=== PATIENT | male | born 2000 | race Caucasian/White ===

== ENCOUNTER 2023-11-14 18:25 | Emergency (ER) | payer OTHER, SELFPAY ==
[2023-11-14 18:32] VITALS: BP 116/71
[2023-11-14 19:06] LABS: % Basophils 0.7 % (0-2); % Eosinophils 4.8 % (0-6); % Immature Granulocytes 0.3 % (0-0.5); % Lymphocytes 32.6 % (20.5-51.1); % Monocytes 8.8 % (1.7-9.3); % Neutrophils 52.8 % (42.2-75.2); Absolute Eosinophils 0.3 10^3/uL (0-0.7); Absolute Monocytes 0.5 10^3/uL (0.1-0.6); Absolute Neutrophils 3.2 10^3/uL (1.4-6.5); Hematocrit 41.5 % (39.0-52.0); Mean Corp Hgb Conc. 33.7 g/dL (33.0-37.0); Mean Corpuscular Hgb 29.5 pg (27.0-31.0); Mean Corpuscular Volume 87.6 fL (80.0-94.0); Mean Platelet Volume 10.4 fL (7.4-10.4); Nucleated Red Blood Cells % 0 % (-); Platelet Count 211 10^3/uL (130-400); Red Blood Cell Count 4.74 10^6/uL (4.70-6.10); Red Cell Dist. Width 12.1 % (11.5-14.5); White Blood Cell Count 6.1 10^3/uL (4.8-10.8)
[2023-11-14 19:15] LABS: Urine Albumin Negative (Neg - Trace); Urine Bilirubin Negative (Negative); Urine Character Clear (Clear); Urine Color Straw; Urine Glucose Negative (Negative); Urine Ketone Negative (Negative); Urine Leukocyte Negative (Negative); Urine Nitrite Negative (Negative); Urine Occult Blood Negative (Negative); Urine Urobilinogen Negative (Neg - 1+)
[2023-11-14 19:28] LABS: ALT (SGPT) 27 U/L (0-50); AST (SGOT) 40 U/L (17-59); Albumin 5.1 g/dl (3.5-5.0); Alkaline Phosphatase 80 U/L (38-126); Blood Urea Nitrogen 17 mg/dl (9-20); Calcium 9.3 mg/dl (8.4-10.2); Carbon Dioxide 23 mmol/L (22-30); Chloride 105 mmol/L (98-107); Glucose 90 mg/dl (70-99); Potassium 4.3 mmol/L (3.5-5.1); Sodium 137 mmol/L (135-145); Total Bilirubin 0.7 mg/dl (0.2-1.3); Total Protein 8.1 g/dl (6.3-8.2); eGFR > 60.00
--- NOTE | 2023-11-14 20:49 | ED.GENMED ---
History of Present Illness
General
Chief Complaint: Abdominal Symptoms
Source: patient
Exam Limitations: none
Time Seen by Provider: 11/14/23 20:34
Travel History
Have you had any contact with someone who has COVID-19?: No
Do you have any symptoms of coronavirus? Fever > 100 degrees, chills, cough, shortness of breath, sore throat, loss of taste or smell, muscle aches, or headache?: No
History of Present Illness
History of Present Illness:
23-year-old male presents with intermittent left flank and lower quadrant abdominal pain worsening over the past several days but has had intermittent episodes over the past several years. Is gotten worse recently. It does occasionally radiate
into the testicle. No difficulty urinating. No vomiting or nausea. No fever. Tends to be made worse to be sitting up right in his seat in the car. No associated back pain. No other complaints at this time
Past History
Past History
ED Past Medical History: None
ED Past Surgical History: None
Social History
Tobacco: Non-smoker
Alcohol: None
Drug: None
Phy Exam
Physical Exam
Physical Exam:
General: Well-appearing male no acute respiratory distress
HEENT: Normocephalic atraumatic
Heart: Regular rate and rhythm no murmurs
Lungs: Clear no wheeze
Abdomen: Soft tender to the left mid abdomen no guarding or rebound and slightly tender to left inguinal region. No bulging. Testicles within normal limits.
Extremities: No cyanosis
Course
Orders/Labs/Results
Orders:
Orders
11/14/23 18:46
Complete Blood Count/With Diff Urgent
Comprehensive Metabolic Panel Urgent
11/14/23 18:56
Urinalysis Reflex To Culture Urgent
Date Specimen was Collected: 11/14/23
Time Specimen was Collected: 18:37
11/14/23 20:49
CT Abd/pelvis W Iv Cont Urgent
Comment:
Reason For Exam: llq/flank pain
Abnormal Lab Results
11/14/23
18:46
Albumin 5.1 H g/dl
(3.5-5.0)
11/14/23 18:46
11/14/23 18:46
Vital Signs
Initial and Last Documented VS:
Initial Vital Signs
Temp Pulse Resp BP Pulse Ox
98.0 F 80 16 116/71 98
11/14/23 18:32 11/14/23 18:32 11/14/23 18:32 11/14/23 18:32 11/14/23 18:32
Last Documented Vital Signs
Temp Pulse Resp BP Pulse Ox
98.0 F 65 19 119/55 99
11/14/23 18:32 11/14/23 21:28 11/14/23 21:28 11/14/23 21:28 11/14/23 21:28
MDM/Problems Addressed
Differential Diagnosis Includes:
Left flank and lower quadrant abdominal pain. Consider hernia versus renal colic versus diverticulitis. Do not suspect torsion
Labs reviewed through triage and are negative. Urinalysis negative. Will do CT scan secondary to tenderness on exam
*Critical Care Note
Total Time (30-74mins, 75-104mins- exclusive of procedures): Not Applicable
Update Note
Update Note:
CT negative labs reviewed and are negative. No evidence of diverticulitis kidney stone or urinary tract infection. Clinically do not suspect torsion. Question possible hernia. Will recommend follow-up with general surgery
ED Attending Note
-
Portions of this chart may have been created with voice recognition software.� Occasional wrong word or��sound alike� substitutions may have occurred due to the inherent limitations of voice recognition software.
Discharge Plan
Departure
Patient Disposition: Home (Routine Discharge)
Date of Disposition: 11/14/23
Time of Disposition: 22:20
Patient with high blood pressure during this ER visit?: No
Discharge Problem:
Abdominal pain
Instructions: Abdominal Hernia (DC)
Prescriptions:
No Action
No Current Medications
0
Referrals:
Luke Medina MD [Active] -
UNKNOWN - PT DOES,NOT KNOW [Family Provider] -
Activity Restrictions/Additional Instructions:
Avoid heavy lifting. Keep stool soft. Use ibuprofen or Tylenol for pain. Follow-up with general surgery for further evaluation
Interventions
Interventions:
ED- Fall Risk Assessment Last Done: 11/14/23 21:02
*ED COVID-19 Vaccine History Last Done: 11/14/23 18:32
BW-[id number] Assessment Last Done: 11/14/23 21:01
[2023-11-14 21:28] VITALS: BP 119/55
== END 2023-11-14 22:27 | disposition home or self-care (01) ==
LOC: EMR 18:25
PROVIDERS: EMERGENCY PHYSICIAN Emergency Medicine
DX: R10.32 Left lower quadrant pain (principal); R10.9 Unspecified abdominal pain
CPT/HCPCS: 99285; 74177; 80053; 81003; 85025; Q9967

== ENCOUNTER 2023-11-16 23:33 | Emergency (ER) | payer OTHER, SELFPAY ==
[2023-11-16 23:34] VITALS: BP 158/80
[2023-11-16 23:50] VITALS: BP 147/78
[2023-11-16] MEDS: ATIVAN 1 MG PO (23:59)
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
[2023-11-17 01:00] VITALS: BP 130/63
== END 2023-11-17 02:20 | disposition home or self-care (01) ==
LOC: EMR 23:33
PROVIDERS: EMERGENCY PHYSICIAN Emergency Medicine
DX: R20.2 Paresthesia of skin (principal); R20.0 Anesthesia of skin; R25.2 Cramp and spasm
CPT/HCPCS: 99284; 70450

== ENCOUNTER 2025-07-01 19:52 | Emergency (ER) | payer SELFPAY ==
[2025-07-01 19:54] VITALS: BP 144/91
--- NOTE | 2025-07-01 20:59 | ED.GENMED ---
History of Present Illness
General
Chief Complaint: Skin Surface Trauma
Source: patient
Exam Limitations: none
Time Seen by Provider: 07/01/25 20:41
Nursing documentation reviewed up to this point in time: agreed with
History of Present Illness
History of Present Illness:
25-year-old male presents to the ER for evaluation of left middle finger injury. Patient from a skateboard and took the skin off his left middle finger. Hit his finger on the ground. He is right-hand dominant. He is unsure of his last tetanus.
He denies any other injuries. He denies hitting his head. Denies any neck or back pain
Past History
Past History
ED Past Medical History: Psychiatric
ED Past Surgical History: None
Social History
Tobacco: Non-smoker
Alcohol: Occasional
Drug: None
Personal: Single
Living: with family
Employment: Employed
Phy Exam
General Physical Exam
General Presentation: no apparent distress
General age: appears stated age
General Skin: warm and dry
General Habitus: normal
General Mental: alert
General Hydration: appears well hydrated
Neurological Exam
Neurological Exam: alert and oriented x3
Musculoskeletal Exam
Musculoskeletal Exam: full ROM and other (Left upper extremity strong pulses positive skin avulsion/distal nail avulsion to the left middle finger distal phalanx region no bony tenderness full flexion extension of finger oozing of blood.)
Skin Exam
Skin Exam: normal color and warm/dry
Psychiatric Exam
Psychiatric Exam: normal mood/affect
Course
Orders/Labs/Results
Orders:
Orders
07/01/25 20:00
CR Hand - Left Min 3 Views Urgent
Comment:
Reason For Exam: injury to middle finger
07/01/25 20:53
Ibuprofen [Motrin] 600 mg PO NOW STA
Tetanus/Diphth/Acelpertussis [Adacel] 0.5 ml IM .ONCE ONE
Vital Signs
Initial and Last Documented VS:
Initial Vital Signs
Temp Pulse Resp BP Pulse Ox
98.4 F 66 18 144/91 100
07/01/25 19:54 07/01/25 19:54 07/01/25 19:54 07/01/25 19:54 07/01/25 19:54
Last Documented Vital Signs
Temp Pulse Resp BP Pulse Ox
98.4 F 66 18 144/ 100
07/01/25 19:54 07/01/25 19:54 07/01/25 19:54 07/01/25 19:54 07/01/25 21:04
Procedures
Laceration Closure
Left Distal Third Finger:
Status of Wound: clean and other (skin avulsion )
Description of Wound Edges: other (avulsion/abrasion)
Preparation: cleaned with saline
Revision/Debridement: irrigate-direct pressure
Type of Closure: other (gelfoam )
MDM/Problems Addressed
Differential Diagnosis Includes:
Not limited to skin avulsion, fracture
MDM/Problems Addressed:
No obvious fracture on x-ray patient with obvious skin avulsion and distal nail avulsion. This area was bleeding area was irrigated with copious amounts normal saline and Gelfoam was applied. Patient was medicated for discomfort tetanus given. He
has full flexion extension of his finger wound care reviewed.
*Radiology
Radiology exam reviewed: preliminary read by ED provider
*Pulse Oximetry
SaO2: 100
Oxygen Mode of Delivery: Room air
Patient hypoxic: no
*Critical Care Note
Total Time (30-74mins, 75-104mins- exclusive of procedures): Not Applicable
ED Attending Note
-
Portions of this chart may have been created with voice recognition software.� Occasional wrong word or��sound alike� substitutions may have occurred due to the inherent limitations of voice recognition software.
Discharge Plan
Departure
Patient Disposition: Home (Routine Discharge)
Date of Disposition: 07/01/25
Time of Disposition: 21:02
Patient with high blood pressure during this ER visit?: Yes
Condition: Fair
Covid-19: Not Applicable
Discharge Problem:
Avulsion of skin, Avulsion of nail
Instructions: Wound Care (DC), Nail Avulsion (DC), BLOOD PRESSURE
Prescriptions:
No Action
No Current Medications
0
Activity Restrictions/Additional Instructions:
Keep wound clean and dry for 24 hours after 24 hours you may lightly wet the wound. Do not remove Gelfoam Gelfoam will fall off on its own.
Follow-up with your family doctor in the next 2-3 days for wound check return if any signs of infection if increased pain swelling redness drainage fever chills
You may take ibuprofen every 8 hours as needed for discomfort and alternate with Tylenol.
You were updated on your tetanus vaccine here in the ER.
Interventions
Interventions:
*Risk Screen - Suicide Last Done: 07/01/25 19:54
*General Assessment Last Done: 07/01/25 19:54
*Neglect/Abuse Screening Last Done: 07/01/25 19:54
Discharge Date and Time
Print Language: SAO TOMEAN
[2025-07-01] MEDS: MOTRIN 600 MG PO (21:47)
[2025-07-01] MEDS: ADACEL 0.5 ML IM (21:47)
[2025-07-01 22:16] VITALS: BP 135/85
== END 2025-07-01 22:17 | disposition home or self-care (01) ==
LOC: EMR 19:52
PROVIDERS: EMERGENCY PHYSICIAN Emergency Medicine; FAMILY PHYSICIAN Hospitalist
DX: S61.303A Unspecified open wound of left middle finger with damage to nail, initial encounter (principal); W22.8XXA Striking against or struck by other objects, initial encounter; Y93.51 Activity, roller skating (inline) and skateboarding; Z23 Encounter for immunization
CPT/HCPCS: 90471; 99283; 73130; 90715